=== PATIENT | female | born 1935 | race Caucasian/White ===

== ENCOUNTER 2024-10-07 13:01 | Emergency (ER) | payer MEDICARE, BC, SELFPAY ==
[2024-10-07] VITALS (29 sets, daily range): BP systolic 99–124; BP diastolic 53–83; PULSE 74–100; RESP 10–27; TEMP 35.8–36.7; O2SAT 91–96; BMI 22.1
--- NOTE | 2024-10-07 13:21 | ED.GENADULT ---
HPI - General Adult General Date Seen: 10/07/24 Chief complaint: Weakness Stated complaint: EMS Time Seen by Provider: 10/07/24 13:20 History of Present Illness HPI narrative: 89 yo F brought to the ER today by EMS from her assisted living. She has a band the been feeling weak and run down. There was some question about whether not she has pneumonia and apparently she had a chest x-ray at the assisted living but clear with the results are. There are no past medical records for her in the [facility] system. Per records from [facility] link: She has a past medical history of previous left JULIANA stroke with right hemiparesis, hypertension, coronary disease, hyperlipidemia, history of UTIs, shoulder joint arthritis, Med list includes: Aricept, amoxicillin for dental visits, acetaminophen, fluticasone nasal spray, metoprolol, mirtazapine, Protonix, MiraLax, Crestor, tamsulosin, nystatin powder, diclofenac gel Her daughter reports that she did have a hospitalization in the hospital at [facility] in [place] couple of months ago because she had an episode of slurred speech. During that hospitalization they were apparently suspicious that she may have had another stroke, but MRI is actually showed nothing acute. Subsequently her speech cleared and she has been at her neurologic baseline since then (does have some chronic right-sided weakness). Her current illness began about 10 days ago on when she just started to feel ?not good. ?. Difficult for her to describe further what that means. She had gone a few days without a bowel movement so initially was suspected that she might be constipated. A few days after that she did pass a fairly large bowel movement that was yellow color but not bloody. This suggested to the patient and family that she was probably not constipated anymore but she did not feel any better. Since that time she has just had poor appetite with nausea and some retching and vomiting whenever she tries to eat or drink anything. She has not really been able to keep down much solid food for the past 10 days and almost not much water. She has been urinating but urine has been more yellow color than normal. No dysuria or urgency or frequency. No flank pain. She is not really having abdominal pain or bloating. She just does not feel good. She has been a little bit weak but nothing focal. She has had a bit of a cough but her daughter attributes that more to coughing when she wretches from vomiting rather than a persistent cough otherwise. She apparently had a portable chest x-ray that was normal, but daughter is not sure about that. She is not having any rib pain or chest pain. No trouble breathing. No headache. No sore throat. No stuffy nose. No fever. Related Data Home Medications ?Medication ?Instructions ?Recorded ?Confirmed aspirin 81 mg capsule 81 mg PO DAILY 10/07/24 10/07/24 cholecalciferol (vitamin D3) 25 25 mcg PO DAILY 10/07/24 10/07/24 mcg (1,000 unit) capsule diclofenac sodium 1 % topical gel 1 g topical BID 10/07/24 10/07/24 fexofenadine 180 mg tablet 180 mg PO DAILY 10/07/24 10/07/24 glipizide 5 mg tablet PO 10/07/24 lidocaine 5 % topical patch 1 patch topical DAILY 10/07/24 10/07/24 metoprolol succinate 50 mg 50 mg PO DAILY 10/07/24 10/07/24 tablet,extended release 24 hr omeprazole 20 mg capsule,delayed 20 mg PO DAILY 10/07/24 10/07/24 release rosuvastatin 20 mg tablet 20 mg PO QPM 10/07/24 10/07/24 sertraline 50 mg tablet 50 mg PO DAILY 10/07/24 10/07/24 Allergies Allergy/AdvReac Type Severity Reaction Status Date / Time atorvastatin Allergy Intermediate Vomiting Verified 10/07/24 15:13 doxycycline Allergy Mild Verified 10/07/24 15:13 tramadol Allergy Mild Verified 10/07/24 15:13 Exam Narrative: Exam Narrative: Constitutional: Appears well-developed and well-nourished. Alert. Conversant. Non toxic. She is weak and requires assistance to sit up for posterior lung exam. HENT: Head: Atraumatic. Nose: Nose normal. Mouth/Throat: Oral mucosa is clear but somewhat dry, not desiccated or cracked.. no trismus. Pharynx normal. Tonsils symmetric. No tonsillar enlargement, erythema, or exudate. Eyes: Conjunctivae normal. EOM normal. Pupils equal, round, and reactive to light. No scleral icterus. Neck: Normal range of motion. Neck supple. No tracheal deviation present. Cardiovascular: Normal rate, regular rhythm. No gallop. No friction rub. No murmur heard. Symmetric radial artery pulses . No JVD Pulmonary/Chest: Effort normal. No stridor. No respiratory distress. No wheezes. No rales. No rhonchi . No tenderness. Abdominal: Soft. Bowel sounds normal. No distension. No mass. Right upper quadrant/epigastric tenderness. No rebound. No guarding. Musculoskeletal: RUE: Normal range of motion. No tenderness. No deformity LUE: Normal range of motion. No tenderness. No deformity RLE: Normal range of motion. No edema. No tenderness. No deformity LLE: Normal range of motion. No edema. No tenderness. No deformity Neurological: Alert and oriented to person, place, and time. Normal strength. CN II-VII intact. No sensory deficit. GCS eye subscore is 4. GCS verbal subscore is 5. GCS motor subscore is 6. Normal coordination She does have right upper and lower extremity weakness which is chronic from her previous stroke. She is at her neurologic baseline. Skin: Skin is warm and dry. No rash noted. No pallor. Normal capillary refill. Psychiatric: Normal mood. Normal affect. Polite. She asks for a drink of water. Const: Vital Signs, click to edit/add: Vital Signs - 24 hr 10/07/24 13:12 10/07/24 13:27 10/07/24 13:30 Temperature 96.4 F L Pulse Rate 74 81 Pulse Rate [Pulse Oximeter] 77 Respiratory Rate 20 27 H 19 Blood Pressure Blood Pressure [Ri ght Upper Arm] 113/57 L Pulse Oximetry 96 94 96 Oxygen Delivery Me thod Room Air 10/07/24 13:45 10/07/24 14:00 10/07/24 14:11 Temperature Pulse Rate 92 86 Pulse Rate [Pulse Oximeter] Respiratory Rate 23 Blood Pressure 109/54 L Blood Pressure [Ri ght Upper Arm] Pulse Oximetry 94 96 Oxygen Delivery Me thod 10/07/24 14:15 10/07/24 14:30 10/07/24 14:31 Temperature Pulse Rate 83 79 79 Pulse Rate [Pulse Oximeter] Respiratory Rate 14 Blood Pressure 105/54 L Blood Pressure [Ri ght Upper Arm] Pulse Oximetry 94 95 95 Oxygen Delivery Ks thod 10/07/24 14:45 10/07/24 15:15 10/07/24 15:30 Temperature Pulse Rate 77 97 95 Pulse Rate [Pulse Oximeter] Respiratory Rate 13 15 Blood Pressure Blood Pressure [Ri ght Upper Arm] Pulse Oximetry 95 94 91 Oxygen Delivery Me thod 10/07/24 15:31 10/07/24 15:32 10/07/24 15:45 Temperature Pulse Rate 97 96 96 Pulse Rate [Pulse Oximeter] Respiratory Rate 22 21 20 Blood Pressure 110/53 L Blood Pressure [Ri ght Upper Arm] Pulse Oximetry 91 91 91 Oxygen Delivery Me thod 10/07/24 16:00 10/07/24 16:01 10/07/24 16:15 Temperature Pulse Rate 100 97 96 Pulse Rate [Pulse Oximeter] Respiratory Rate 21 23 10 L Blood Pressure 109/60 Blood Pressure [Ri ght Upper Arm] Pulse Oximetry 93 93 94 Oxygen Delivery Me thod 10/07/24 16:30 10/07/24 16:31 10/07/24 16:45 Temperature Pulse Rate 91 89 84 Pulse Rate [Pulse Oximeter] Respiratory Rate 10 L 20 23 Blood Pressure 118/61 Blood Pressure [Ri ght Upper Arm] Pulse Oximetry 91 94 92 Oxygen Delivery Me thod 10/07/24 17:00 10/07/24 17:02 10/07/24 17:31 Temperature Pulse Rate 87 88 90 Pulse Rate [Pulse Oximeter] Respiratory Rate 11 L 23 20 Blood Pressure 117/64 99/66 Blood Pressure [Ri ght Upper Arm] Pulse Oximetry 93 92 93 Oxygen Delivery Me thod 10/07/24 18:01 10/07/24 19:02 10/07/24 19:31 Temperature 98.0 F Pulse Rate 89 85 84 Pulse Rate [Pulse Oximeter] Respiratory Rate 20 21 18 Blood Pressure 124/71 117/79 108/83 Blood Pressure [Ri ght Upper Arm] Pulse Oximetry 93 94 94 Oxygen Delivery Me thod 10/07/24 19:32 10/07/24 19:45 Temperature Pulse Rate 86 81 Pulse Rate [Pulse Oximeter] Respiratory Rate 17 22 Blood Pressure Blood Pressure [Ri ght Upper Arm] Pulse Oximetry 95 95 Oxygen Delivery Me thod Course Course ED Course: Recheck-actually says she is feeling better after fluids and meds. Hemodynamically stable. No trouble breathing. No cough. No chest pain. Reevaluation(s) Reevaluation #1: Recheck-says she has a little bit hungry and would like to eat a ice cream altered. I agree that would be appropriate since there is no impending need for surgical intervention. Vital Signs Vital signs: Initial Vital Signs Temperature 96.4 F L 10/07/24 13:12 Temperature Source Temporal Artery Scan 10/07/24 13:12 Pulse Rate 77 10/07/24 13:12 Respiratory Rate 20 10/07/24 13:12 Blood Pressure 113/57 L 10/07/24 13:12 Blood Pressure Mean 75 10/07/24 13:12 Blood Pressure Position High-Fowlers 10/07/24 13:12 Pulse Oximetry 96 10/07/24 13:12 Oxygen Delivery Method Room Air 10/07/24 13:12 Vital Signs Temperature 96.4 F L 10/07/24 13:12 Pulse Rate 77 10/07/24 13:12 Respiratory Rate 20 10/07/24 13:12 Blood Pressure 113/57 L 10/07/24 13:12 Pulse Oximetry 96 10/07/24 13:12 Oxygen Delivery Method Room Air 10/07/24 13:12 Temperature 98.0 F 10/07/24 19:31 Pulse Rate 81 10/07/24 19:45 Respiratory Rate 22 10/07/24 19:45 Blood Pressure 108/83 10/07/24 19:31 Pulse Oximetry 95 10/07/24 19:45 Oxygen Delivery Method Room Air 10/07/24 13:12 Medications Administered Medications: Discontinued Medications Generic Name Dose Route Start Last Admin Trade Name Freq PRN Reason Stop Dose Admin Aspirin 324 mg 10/07/24 17:31 10/07/24 17:43 Aspirin 81 Mg Tab.Chew PO 10/07/24 17:32 324 mg ONCE ONE Administration Sodium Chloride 1,000 mls @ 1,000 mls/hr 10/07/24 13:45 10/07/24 16:20 0.9 % Sodium Chloride 1000 Ml IV 10/07/24 14:44 Infused .Q1H JYOTI Infusion Piperacillin Sod/Tazobactam 100 mls @ 200 mls/hr 10/07/24 16:02 10/07/24 17:04 Sod 4.5 gm/ Sodium Chloride IVPB 10/07/24 16:03 Infused ONCE ONE Infusion Vancomycin/PEG/NADA/Lysine/Water 1.25 gm in 250 mls @ 200 mls/hr 10/07/24 16:45 10/07/24 18:25 Vancomycin 1.25 Gm/250 Ml IVPB 10/07/24 17:59 Infused ONCE ONE Infusion Sodium Chloride 1,000 mls @ 1,000 mls/hr 10/07/24 16:45 10/07/24 18:35 0.9 % Sodium Chloride 1000 Ml IV 10/07/24 17:44 Infused .Q1H JYOTI Infusion Ondansetron HCl 4 mg 10/07/24 13:45 10/07/24 15:14 Ondansetron 2 Mg/Ml Inj IVP 10/07/24 13:46 4 mg ONCE ONE Administration Medical Decision Making MDM Narrative Medical decision making narrative: Very pleasant 89-year-old female brought to the ER today by her family with concerns that she has just been feeling unwell for about 10 days. She is not really able to accurately describe her symptoms other than she just does not feel good. She has also been nauseous with a lot of postprandial vomiting and likely subsequent dehydration. She has had a little bit of coughing but mostly that is related to her vomiting. Differential is broad. With reported cough, it sounds like she already had a chest x-ray at her assisted living that was either normal or determinant. Chest CT today shows no evidence for any clear acute pneumonia. Chest CT shows diffusely increased interstitial markings and right lung base atelectasis but no acute pneumonia per CT. CT of her abdomen shows multiple hepatic lesions concerning for metastatic malignant disease. Unclear primary. There is questionable thickening of the pancreatic head which could raise concern for a pancreatic primary. She also has a history of breast cancer (and postsurgical changes on her CT chest from that) but no clear other lesions in the chest to say that breast would be primary. Recommendation from Radiology is that if she wants treatment would not probably need biopsy of 1 of these liver lesions. Discussed this in detail with the patient and her daughter. This is a very unfortunate finding is concerning for probable metastatic cancer. Patient is not sure she would want to go through chemotherapy or treatment but daughter would at least like her have consult with Oncology and consider biopsy to find out where the primary site is. LFTs are abnormal including alk-phos of 800, transaminases abnormal, total bili of 1.8. Fortunately lipase is normal. Suspect that the hepatic lesions abnormal LFTs are partly contributing to her vomiting and generalized malaise. Labs do suggest probable dehydration with lactic of 2.1 and BUN of 38 and creatinine 1.5. Fortunately other electrolytes are normal save for mild hyponatremia with a sodium of 133. She does have a leukocytosis with white count of 18 which raise concern for infection. Chest CT negative for pneumonia. COVID/influenza PCR negative. Urinalysis negative. Will start on antibiotics for potential sepsis of unclear etiology. She is not having any chest pain or shortness of breath. EKG shows sinus rhythm without any clear ischemia. Troponin is abnormal at 0.51. 2 hour delta troponin is flat at 0.49. I suspect this is probably demand ischemia from her underlying dehydration or perhaps related to her chronic renal insufficiency. Since patient will need further evaluation by Cardiology [facility] and potentially IR for a biopsy of her liver lesions, transfer is indicated. Patient and her family would prefer [facility]. We were able to contact to the hospitalist, Dr. Carrera from [place], through the [facility] transfer line and she very graciously accept this patient in transfer. She is transferred by EMS. Lab Data Labs: Lab Results 10/07/24 10/07/24 10/07/24 Range/Units 14:10 16:00 17:46 WBC 18.05 H (4.50-11.00) K/uL RBC 4.63 (4.00-5.20) m/uL Hgb 12.8 (12.0-16.0) gm/dL Hct 40.7 (33.0-51.0) % MCV 88 (80-100) fL MCH 28 (26-34) pg MCHC 31 L (32-36) gm/dL RDW Coeff of Kia 15.7 H (11.5-15.5) % Plt Count 260 (140-440) K/uL Neut % (Auto) 74.5 H (42.0-72.0) % Lymph % (Auto) 12.4 L (20-44) % [place] % (Auto) 11.1 H (0.0-11.0) % Eos % (Auto) 0.7 (0.0-7.0) % Baso % (Auto) 0.2 (0.0-3.0) % Neut # (Auto) 13.40 H (1.7-7.0) K/uL Lymph # (Auto) 2.20 (0.90-2.90) K/uL [place] # (Auto) 2.00 H (0.00-0.90) K/UL Eos # (Auto) 0.10 (0.00-0.50) K/uL Baso # (Auto) 0.00 (0.00-0.30) K/uL Abs Immat Gran (auto) 0.20 (0.00-0.30) K/uL Imm/Tot Granulo (auto) 1.1 % Sodium 133 L (135-149) mmol/L Potassium 4.0 (3.6-5.1) mmol/L Chloride 95 L (96-114) mmol/L Carbon Dioxide 29 (20-32) mmol/L Anion Gap 9 (7-15) mEq/L BUN 38 H (7-30) mg/dL Creatinine 1.5 (0.5-1.5) mg/dL Estimated Creat Clear 21.03 Estimated GFR 33 ml/min Glucose 66 (60-115) mg/dL Lactate 2.1 H (0.5-1.9) mmol/L Calcium 8.9 (8.4-10.6) mg/dL Total Bilirubin 1.8 H (0.1-1.5) mg/dL AST 168 H (12-35) U/L ALT 70 H (4-35) U/L Alkaline Phosphatase 810 H (40-150) U/L Troponin I 0.51 H* 0.49 H* (0.01-0.04) ng/mL C-Reactive Protein 7.5 H (0.5-1.0) mg/dL Total Protein 6.7 (6.0-8.3) g/dL Albumin 3.4 (3.3-5.0) g/dL Lipase 82 (23-300) U/L Urine Color Yellow (Yellow) Urine Appearance Cloudy A (Clear) Urine pH 6.0 (5.0-8.5) Ur Specific Natalia 1.015 (1.000-1.030) Urine Protein 2+ A (Negative) Urine Glucose (UA) Negative (Negative) Urine Ketones Negative (Negative) Urine Blood 2+ A (Negative) Urine Nitrite Negative (Negative) Urine Bilirubin Negative (Negative) Urine Urobilinogen 2.0 A (0.2-1.0) Ur Leukocyte Esterase Negative (Negative) Urine RBC 0-2 (0-2) Urine WBC 2-5 (0-5) Ur Squamous Epith Cells Few (None-Few) Urine Bacteria Moderate A (None) Fine Granular Casts Moderate A (None) SARS-CoV-2 (PCR) Negative SARS-CoV-2 (Negative) Influenza Type A (PCR) Negative PCR FLU A (Negative) Influenza Type B (PCR) Negative PCR FLU B (Negative) Imaging Data CT Chest/Ab/Pelvis: Attestation: I have reviewed the pertinent imaging results. Radiologist's impression: Impression: 1. Elevated right hemidiaphragm with basilar atelectasis and parenchymal scar. Diffusely increased interstitial markings. Likely postoperative and/or posttreatment changes of the left breast with minimal pleural thickening of the anterior left chest wall. 2. Extensive hypodensities throughout the liver too numerous to count likely representing metastatic disease with associated epigastric and portacaval lymph nodes. Primary source is not entirely obvious with subtle thickening of the distal pancreatic body as well as focal thickening and inflammatory change of the splenic flexure of the colon. Recommend correlation with percutaneous tissue sampling of a easily accessible liver lesion if there remains persistent clinical concern. 3. No other acute intra-abdominal abnormalities are appreciated. ECG Data Attestation: I personally reviewed and interpreted this ECG as follows: Interpretation: Normal sinus rhythm Rate: 77 KS: 136 QRS axis: Low voltage. Normal axis. No pathologic Q-waves. ST segment/T wave: Nonspecific T-wave flattening. No ST segment elevation or depression QTc: 475 Discharge Plan Discharge Prescriptions: No Action aspirin 81 mg capsule 81 mg PO DAILY cholecalciferol (vitamin D3) 25 mcg (1,000 unit) capsule 25 mcg PO DAILY diclofenac sodium 1 % gel 1 g topical BID Rx Instructions: apply to shoulder fexofenadine 180 mg tablet 180 mg PO DAILY metoprolol succinate 50 mg tablet extended release 24 hr 50 mg PO DAILY lidocaine 5 % adhesive patch,medicated 1 patch topical DAILY omeprazole 20 mg capsule,delayed release(DR/EC) 20 mg PO DAILY sertraline 50 mg tablet 50 mg PO DAILY glipizide 5 mg tablet PO rosuvastatin 20 mg tablet 20 mg PO QPM Follow Up/Referrals: Provider,Not a Local [Primary Care Provider] -
--- NOTE | 2024-10-07 13:45 | CRLHL7_ITS ---
For Patients: As a result of the 21st Century Cures Act, medical imaging exams and procedure reports are released immediately into your electronic medical record. You may view this report before your referring provider. If you have questions, please contact your health care provider. Indication: Generalized weakness, nausea and vomiting, cough and right upper quadrant pain Technique: Volumetric multidetector CT images of the chest, abdomen, and pelvis were obtained after the administration of intravenous contrast. 62 cc Isovue 370 low osmolar intravenous contrast Comparison: None available. FINDINGS: CHEST Evaluation of the thoracic inlet is somewhat limited due to beam hardening artifact from left shoulder arthroplasty. Likely postoperative changes of the left breast with calcified nodular tissue in the upper outer left quadrant. The thoracic aorta is nonaneurysmal. There is no filling defect to suggest pulmonary embolus. There is no mediastinal, hilar, or axillary adenopathy. There is [id number] central bronchial thickening. There is an elevated right hemidiaphragm with basilar atelectasis. There is minimal peripheral pleural thickening and parenchymal scar within the left upper lobe. Small pulmonary nodules are seen within the peripheral left lower lobe and peripheral right upper lobe measuring 4.4 millimeters in greatest dimension on series 2, image 36. Otherwise no evidence of pulmonary mass lesion. The thoracic osseus structures are intact without fracture, lytic, or blastic lesion. The thoracic vertebral body heights are grossly maintained with minimal endplate Schmorl`s defects. No evidence of significant spondylolisthesis or displaced fracture. No obvious lytic or blastic focus. ABDOMEN AND PELVIS The liver is markedly enlarged with extensive hypodensities seen throughout commensurate with metastatic disease. There are bulky epigastric and portacaval lymph nodes associated the largest measuring up to 2.6 centimeters. The spleen is normal in attenuation and size. The gallbladder is surgically absent. There is no intrahepatic or common ductal dilatation. The stomach and duodenum are grossly unremarkable. There is suggestion mild thickening of the distal pancreatic body without obvious discrete mass lesion. This area measures up to 3 centimeters. The adrenal glands are unremarkable without evidence of adenoma. Cystic changes of the kidneys are appreciated with otherwise preserved corticomedullary differentiation. No evidence of obstruction. There is a diffusely decompressed appearance of the colon with questionable moderate focal thickening of the proximal descending colon and splenic flexure with subtle pericolonic inflammatory changes. There are extensive colonic diverticula without additional inflammatory changes. The appendix is unremarkable without significant inflammatory change. The abdominal aorta is nonaneurysmal with moderate scattered atherosclerotic calcification.. The solid pelvic viscera are grossly unremarkable. Pathologic epigastric and portacaval lymph nodes are appreciated no other retroperitoneal or pelvic lymph nodes are noted. The anterior abdominal wall is grossly intact without significant hernias. There is no free air or free fluid. Degenerative changes of the bilateral hips are appreciated. The lumbar vertebral body heights are grossly maintained with trace anterolisthesis of L4 on L5. There is mild to moderate facet arthrosis. Impression: 1. Elevated right hemidiaphragm with basilar atelectasis and parenchymal scar. Diffusely increased interstitial markings. Likely postoperative and/or posttreatment changes of the left breast with minimal pleural thickening of the anterior left chest wall. 2. Extensive hypodensities throughout the liver too numerous to count likely representing metastatic disease with associated epigastric and portacaval lymph nodes. Primary source is not entirely obvious with subtle thickening of the distal pancreatic body as well as focal thickening and inflammatory change of the splenic flexure of the colon. Recommend correlation with percutaneous tissue sampling of a easily accessible liver lesion if there remains persistent clinical concern. 3. No other acute intra-abdominal abnormalities are appreciated. Please note that all CT scans at this facility use dose modulation, iterative reconstruction, and/or weight-based dosing when appropriate to reduce radiation dose to as low as reasonably achievable. Dictated by Raúl Grullon MD @ 10/07/2024 3:43:07 PM (Electronically Signed)
[2024-10-07 14:16] LABS: Lactate* 2.1 mmol/L (0.5-1.9)
[2024-10-07 14:23] LABS: Basophils Percent Auto 0.2 % (0.0-3.0); Eosinophils Percent Auto 0.7 % (0.0-7.0); Hematocrit 40.7 % (33.0-51.0); Hemoglobin* 12.8 gm/dL (12.0-16.0); Immature Granulocytes Pct Auto 1.1 %; Lymphocytes Percent Auto 12.4 % (20-44); Mean Corpuscular HGB Conc 31 gm/dL (32-36); Mean Corpuscular Hemoglobin 28 pg (26-34); Mean Corpuscular Volume 88 fL (80-100); Monocytes Percent Auto 11.1 % (0.0-11.0); Neutrophils Percent Auto 74.5 % (42.0-72.0); Platelet Count* 260 K/uL (140-440); RDW Coefficient of Variation % 15.7 % (11.5-15.5); Red Blood Count 4.63 m/uL (4.00-5.20); White Blood Count* 18.05 K/uL (4.50-11.00)
[2024-10-07 14:26] LABS: Slide Review Reflex No
[2024-10-07 14:34] LABS: Albumin* 3.4 g/dL (3.3-5.0); Chloride* 95 mmol/L (96-114); Sodium* 133 mmol/L (135-149)
[2024-10-07 14:37] LABS: Alanine Aminotransferase* 70 U/L (4-35); Alkaline Phosphatase* 810 U/L (40-150); Anion Gap 9 mEq/L (7-15); Aspartate Amino Transferase* 168 U/L (12-35); Bilirubin Total* 1.8 mg/dL (0.1-1.5); Blood Urea Nitrogen* 38 mg/dL (7-30); Carbon Dioxide* 29 mmol/L (20-32); Creatinine* 1.5 mg/dL (0.5-1.5); Est. Creatinine Clearance* 21.03; Estimated Glomerular Filt Rate 33 ml/min; Lipase* 82 U/L (23-300); Total Protein* 6.7 g/dL (6.0-8.3)
[2024-10-07 14:38] LABS: Calcium* 8.9 mg/dL (8.4-10.6); Glucose* 66 mg/dL (60-115)
[2024-10-07 14:40] LABS: C Reactive Protein* 7.5 mg/dL (0.5-1.0)
[2024-10-07 14:56] LABS: Troponin I* 0.51 ng/mL (0.01-0.04)
[2024-10-07 14:57] LABS: PCR FLU A Negative PCR FLU A (Negative); PCR FLU B Negative PCR FLU B (Negative); SARS PCR* Negative SARS-CoV-2 (Negative)
[2024-10-07] MEDS: 0.9 % SODIUM CHLORIDE 1000 ml 1,000 ML IV ×2 (15:14→17:10)
[2024-10-07] MEDS: ONDANSETRON 2 MG/ML inj 4 MG IVP (15:14)
[2024-10-07] MEDS: PIPERACILLIN/TAZOBACTAM 4.5 GM in 0.9 % SODIUM CHLORIDE Mini-bag 100 ML IVPB (16:28)
[2024-10-07 16:36] LABS: Appearance Urine Cloudy (Clear); Bilirubin Urine Negative (Negative); Blood Urine 2+ (Negative); Color Urine Yellow (Yellow); Glucose Urine Negative (Negative); Ketones Urine Negative (Negative); Leukocyte Esterase Urine Negative (Negative); Nitrite Urine Negative (Negative); Protein Urine 2+ (Negative); Specific Gravity Urine 1.015 (1.000-1.030)
[2024-10-07 16:53] LABS: Bacteria Urine Moderate; RBC Urine 0-2 (0-2); Squamous Epithelial Cell Urine Few (None-Few)
[2024-10-07 16:54] LABS: Fine Granular Casts Urine Moderate
[2024-10-07] MEDS: VANCOMYCIN 1.25 GM/250 ML 1.25 GM/250 ML PIGGYBACK IVPB (17:04)
[2024-10-07] MEDS: ASPIRIN 81 MG TAB.CHEW 324 MG PO (17:43)
[2024-10-07 18:24] LABS: Troponin I* 0.49 ng/mL (0.01-0.04)
== END 2024-10-07 20:03 | disposition other institution (70) ==
PROVIDERS: Emergency Provider Emergency Medicine
DX: K76.9 Liver disease, unspecified (principal); D72.829 Elevated white blood cell count, unspecified; R53.81 Other malaise; R11.10 Vomiting, unspecified
CPT/HCPCS: 36415; 71260; 74177; 80053; 81001; 83605; 83690; 84484; 85025; 86140; 87040; 87086; 87631; 96365; 96367; 96375; 99284; 99285; A9270; J2405; J2543; J3372; J7030; Q9967

== ENCOUNTER 2024-10-07 19:45 | Outpatient (CLI) | payer MEDICARE, BC, SELFPAY | END 2024-10-07 19:46 | disposition home or self-care (01) | PROVIDERS: Visit Provider Family Medicine | DX: K76.9 Liver disease, unspecified (principal); R53.1 Weakness | CPT/HCPCS: A0425; A0427 ==